=== PATIENT | female | born 1975 | race Caucasian/White ===

== ENCOUNTER 2021-01-14 15:07 | Emergency (ER) | payer OTHER ==
[~2021-01-14 15:07] MED LIST: BACTROBAN NASAL1 G1; PENVEE K 500 M500 MG PO; PREDNISONE20 MG PO
[2021-01-14] MEDS ORDERED: CLEOCIN HCL150 MG PO (15:55)
== END 2021-01-14 16:23 | disposition home or self-care (01) ==
LOC: ER1 15:07
DX: K04.7 Periapical abscess without sinus (principal); I10 Essential (primary) hypertension
CPT/HCPCS: 96372; 99282; J0561